=== PATIENT | female | born 1965 | race Caucasian/White ===

== ENCOUNTER 2019-08-20 07:47 | Day surgery (SDC) | payer OTHER ==
--- NOTE | 2019-08-15 09:32 | HP ---
Admitting History and Physical - Primary Care Physician PCP: Kartik Amaya - Admission Chief Complaint: Right breast cancer History of Present Illness: Patient is a 54 yo female noted to have a right central mass x 2 as well as a left retroareolar lesion on screening mammo and confirmed on diagnostic US. 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 The other two lesions were c/w a right 2 oclock cyst and left retroareolar fibroadenoma via core bxs. The right 12 oclock cancer is tagged with a heart clip. Patient is severely claustrophobic and therefore MRI was not done. Patient is presenting for a right breast WE with NL snbx and intraoperative radiation. History Source: Patient Limitations to Obtaining History: No Limitations - Past Medical History Reproductive: Yes: Fibroids Additional Past Medical History: Migraines - Past Surgical History Additional Past Surgical History: Myomectomy (2003) Home Medications - Allergies Allergies/Adverse Reactions: Allergies Allergy/AdvReac Type Severity Reaction Status Date / Time No Known Allergies Allergy Verified 08/15/19 09:36 - Home Medications Home Medications (free text): Maxalt Family Medical History Family Hx Cancer: Mother (breast cancer at 71) Other Family History: mat cousin-breast cancer 40s Review of Systems - Review of Systems Constitutional: reports: No Symptoms Cardiovascular: reports: No Symptoms Breasts: reports: See HPI Physical Examination Constitutional: Yes: Well Nourished, Calm Cardiovascular: Yes: WNL Respiratory: Yes: WNL Breast(s): Yes: Other (Breasts are symmetrical without suspicious palpable masses or axillary adenopathy noted bilaterally.) Problem List - Problems (1) Breast cancer, right Code(s): C50.911 - MALIGNANT NEOPLASM OF UNSP SITE OF RIGHT FEMALE BREAST Qualifiers: Breast location: overlapping sites of breast Estrogen receptor status: positive Patient sex: female Qualified Code(s): C50.811 - Malignant neoplasm of overlapping sites of right female breast; Z17.0 - Estrogen receptor positive status [ER+] Assessment/Plan Plan: Right breast WE with NL, snbx with lympho, poss ANDx and intraop radiation
[2019-08-15 12:13] VITALS: BMI 32.3
[2019-08-20] MEDS ORDERED: LIDOCAINE HCL 1%, 10 MG/ML (20ML VIAL) ONE (12:39)
[2019-08-20] MEDS ORDERED: BUPIVACAINE HCL/PF 2.5 MG/ML - 30 ML VIAL IJ ONE ×2 (12:39→15:34)
[2019-08-20] MEDS ORDERED: GUM MASTIC/STORAX/MSAL/ALCOHOL 1 DRP DROPSBTL MC ONE (12:40)
[2019-08-20] MEDS ORDERED: ePHEDrine SULFATE 50 MG/1 ML AMPULE ONE (13:03)
[2019-08-20] MEDS ORDERED: ONDANSETRON 4 MG/2 ML VIAL ONE ×3 (13:03→16:53)
[2019-08-20] MEDS ORDERED: MIDAZOLAM HCL 2 MG/2 ML SINGLE DOSE VIAL ONE (13:03)
[2019-08-20] MEDS ORDERED: PROPOFOL 20 ML ONE ×4 (13:03→15:49)
[2019-08-20] MEDS ORDERED: EPHEDRINE SULFATE/0.9% NACL/PF 50 MG/10 ML SYRINGE NR ONE (13:03)
[2019-08-20] MEDS ORDERED: DEXAMETHASONE SOD PHOSPHATE 4 MG/1 ML VIAL ONE ×2 (13:03→13:31)
[2019-08-20] MEDS ORDERED: SUCCINYLCHOLINE CHLORIDE 200 MG/10 ML SYRINGE ONE (13:03)
[2019-08-20] MEDS ORDERED: ISOSULFAN BLUE 10 MG/ML VIAL SQ ONE (13:09)
[2019-08-20] MEDS ORDERED: SODIUM CHLORIDE 0.9% P/F 10 ML VIAL IJ ONE (13:31)
[2019-08-20] MEDS ORDERED: KETOROLAC TROMETHAMINE 30 MG/1 ML VIAL ONE (13:31)
[2019-08-20] MEDS ORDERED: ceFAZolin SODIUM 1 GM VIAL ONE (13:31)
[2019-08-20] MEDS ORDERED: ONDANSETRON 4 MG/2 ML VIAL IVPUSH PRN ×2 (14:50→17:08)
[2019-08-20] MEDS ORDERED: KETOROLAC TROMETHAMINE 30 MG/1 ML VIAL IVPUSH PRN (14:50)
[2019-08-20] MEDS ORDERED: DEXTROSE 5%-0.45% SALINE 1,000 ML IV SCH (15:00)
--- NOTE | 2019-08-20 16:27 | OP ---
DATE OF OPERATION: 08/20/2019 PREOPERATIVE DIAGNOSIS: Right breast cancer. POSTOPERATIVE DIAGNOSIS: Right breast cancer. PROCEDURE PERFORMED: Right mammographically localized partial mastectomy with sentinel lymph node biopsy and intraoperative radiation. ANESTHESIA: General, intubated. SURGEON: Conner Amaya MD VP PLATFORMS: GOSIA Valle ESTIMATED BLOOD LOSS: Minimal. COMPLICATIONS: None. DESCRIPTION OF PROCEDURE: The patient was made aware of the risks and benefits of the procedure and consented. She was placed in the supine position after going to the radiology suite, where a needle was placed next to the indexed lesion, and Nuclear Medicine, where the right breast skin was injected with nuclear tracer. After general anesthesia was induced, the patient was intubated. The subareolar tissue was injected with 2 mL of 1% isosulfan blue. The operative site was then prepped and draped in the usual sterile fashion. The right axilla was approached first. A curvilinear incision was in the right axilla. Using blunt and sharp dissection, tissues were dissected down, revealing 3 blue and hot lymph nodes. These were surgically excised and submitted to Pathology. The wound was copiously irrigated with normal saline. Hemostasis was maintained with electrocautery. Interrogation of the axilla revealed no suspicious lymph nodes or hot spots. This wound was then closed with interrupted 3-0 Vicryl, followed by running subcuticular 4-0 Monocryl. The breast was then approached. A curvilinear incision was made from approximately 9 to 3 o'clock. Using electrocautery, thick skin flaps were made. The needle was withdrawn through the puncture site and a wire . Tissues around the wire were then sharply excised and submitted with a short suture superior and long suture lateral. Specimen radiograph confirmed the presence of the indexed lesion. Additional segments were taken medial, lateral, deep, anterior, superior and inferior, with clips at the new margin. The wound was copiously irrigated with normal saline and hemostasis maintained by electrocautery. A 4.5-cm probe was then placed into the cavity and the tissue was apposed to it with a purse-string suture of number 1 Vicryl. The skin was protected with saline-soaked gauze, and intraoperative ultrasound revealed the distances from the skin to the probe were greater than 1.5 cm. Radiopaque material was placed over the chest wall and she underwent approximately 35 minutes of intraoperative radiation. The probe, gauze and suture were then removed. The wound was copiously irrigated with normal saline. The wound was then closed with deep 2-0 Vicryl, followed by deep dermal 3-0 Vicryl, followed by running subcuticular 4-0 Monocryl. Steri-Strips, sterile dressing and a compression bra were then applied. The patient, having tolerated the procedure, was transferred to the recovery room in excellent condition. CONNER AMAYA M.D. [id number]
[2019-08-20 16:41] VITALS: TEMP 97.8
[2019-08-20] MEDS ORDERED: LACTATED RINGERS SOLUTION 1,000 ML IV SCH (17:15)
[2019-08-20] MEDS ORDERED: PROMETHAZINE HCL 25 MG/1 ML VIAL ONE (17:26)
[2019-08-20 19:35] VITALS: BP 122/66; PULSE 94
--- NOTE | 2019-08-20 23:25 | OP ---
DATE OF OPERATION: 08/20/2019 PREOPERATIVE DIAGNOSIS: Right breast cancer. POSTOPERATIVE DIAGNOSIS: Right breast cancer. PROCEDURE: Post lumpectomy intraoperative radiation therapy for right breast cancer. ATTENDING SURGEON: Kartik Amaya MD AUTO BUMPER MECHANIC/RADIATION ONCOLOGIST: Maile Lawton MD ANESTHESIA: General. COMPLICATIONS: None. INDICATIONS: Patient is a 54-year-old woman with a clinical stage IA invasive ductal carcinoma of the right breast elected breast conversation therapy with intraoperative radiation therapy on the TARGIT-US protocol. DESCRIPTION OF PROCEDURE: Dr. Amaya performed right lumpectomy and sentinel lymph node biopsy, which he has dictated. After excision of additional margins, the lumpectomy cavity was prepared and sized with a 4.5 spherical applicator, which was placed into the lumpectomy cavity at the 11 o'clock aspect of the right breast. The surrounding breast tissues were cinched around the applicator with the Vicryl pursestring suture. A clinical and ultrasound simulation was performed to ensure that the applicator was located within the operative bed with close apposition of the surrounding breast tissue to the surface of the applicator. Ultrasound measurements showed a minimum distance of 2.8 cm from the applicator to skin surface at the 6 o'clock aspect of the applicator. Saline-soaked gauze was placed between the skin and breast tissue. The applicator was positioned away from the chest wall to minimize further deep exposure. Shielding material was placed over the breast to reduce scatter radiation. The patient received a total dose of 20Gy prescribed to 0-mm from the applicator surface using 50 kV x-rays with the Intrabeam system. Prior to treatment, the system was double checked with appropriate physics quality control clerk measures. The total time required for the treatment was 36 minutes 14 seconds at a dose rate of 0.556 Gy per minute. When the treatment was completed , survey of the patient and room confirmed that the Intrabeam source was off. There were no complications. Dr. Amaya's team removed the radiation applicator from the patient and completed the surgery. DISPOSITION: The patient will be transferred to the recovery room following the surgery. MAILE LAWTON M.D. [id number] cc: Kartik Amaya MD [facility]
--- NOTE | 2019-08-26 11:13 | PATH ---
Surgical Pathology Report Patient Name: PRAVEEN STATON [facility]. Rec. #: [id number] /Age/Gender: 1965 (Age: 54) / F Account: [id number] Location: [facility] AMBULATORY Taken: 08/20/2019 Received: 08/20/2019 Reported: 08/26/2019 Physicians: Kartik Amaya M.D. Specimen(s) Received A: RIGHT AXILLARY SENTINEL NODES B: RIGHT BREAST WIDE EXCISION C: RIGHT BREAST SUPERIOR MARGIN D: RIGHT BREAST MEDIAL MARGIN E: RIGHT BREAST ANTERIOR MARGIN F: RIGHT BREAST INFERIOR MARGIN G: RIGHT BREAST LATERAL MARGIN H: RIGHT BREAST POSTERIOR MARGIN Clinical History Invasive carcinoma Final Diagnosis A. AXILLARY SENTINEL NODES, RIGHT, EXCISION: THREE LYMPH NODES NEGATIVE FOR CARCINOMA ON H&E AND CYTOKERATIN AE1/3 IMMUNOHISTOCHEMICAL STAIN (0/3). B. BREAST, RIGHT, WIDE EXCISION: INVASIVE DUCTAL CARCINOMA, POORLY DIFFERENTIATED (TUBULE SCORE: 3/3, NUCLEAR GRADE: 3/3, MITOTIC SCORE: 2/3; TOTAL VALENCIA SCORE: 8/9). INVASIVE CARCINOMA MEASURES 1.3 CM IN GREATEST MICROSCOPIC DIMENSION. NO DUCTAL CARCINOMA IN SITU (DCIS) IDENTIFIED. LOBULAR CARCINOMA IN SITU (LCIS) CLASSICAL TYPE. NO LYMPHOVASCULAR INVASION IDENTIFIED. SURGICAL MARGINS ARE UNINVOLVED BY CARCINOMA; CARCINOMA IS 2 MM FROM CLOSEST POSTERIOR MARGIN. SEE SPECIMEN C-H FOR FINAL MARGINS. PRIOR BIOPSY SITE CHANGES ARE PRESENT. REMAINDER OF BREAST PARENCHYMA SHOWS A FIBROADENOMA IN A BACKGROUND OF FIBROCYSTIC CHANGES INCLUDING STROMAL FIBROSIS, MICROCYSTS, USUAL DUCTAL HYPERPLASIA, AND COLUMNAR CELL CHANGES. SEE CASE SUMMARY BELOW. SEE COMMENT. C. BREAST, RIGHT, SUPERIOR MARGIN, EXCISION: BENIGN BREAST PARENCHYMA. D. BREAST, RIGHT, MEDIAL MARGIN, EXCISION: INVASIVE LOBULAR CARCINOMA, MODERATELY DIFFERENTIATED (TUBULE SCORE: 3/3, NUCLEAR GRADE: 2/3, MITOTIC SCORE: 1/3; TOTAL VALENCIA SCORE: 6/9), CLASSICAL TYPE. INVASIVE CARCINOMA MEASURES 2 MM IN GREATEST MICROSCOPIC DIMENSION. NO DUCTAL CARCINOMA IN SITU (DCIS) IDENTIFIED. LOBULAR CARCINOMA IN SITU (LCIS) CLASSICAL TYPE. NO LYMPHOVASCULAR INVASION IDENTIFIED. SURGICAL MARGINS ARE UNINVOLVED BY CARCINOMA; CARCINOMA IS 6 MM FROM NEW MEDIAL MARGIN. SEE CASE SUMMARY BELOW. SEE COMMENT. E. BREAST, RIGHT, ANTERIOR MARGIN, EXCISION: BENIGN BREAST PARENCHYMA. F. BREAST, RIGHT, INFERIOR MARGIN, EXCISION: LOBULAR CARCINOMA IN SITU (LCIS) CLASSICAL TYPE. G. BREAST, RIGHT, LATERAL MARGIN, EXCISION: LOBULAR CARCINOMA IN SITU (LCIS) CLASSICAL TYPE. H. BREAST, RIGHT, POSTERIOR MARGIN, EXCISION: LOBULAR CARCINOMA IN SITU (LCIS) CLASSICAL TYPE. SEE COMMENT. PATHOLOGIC STAGE (pTNM, 8TH EDITION): pT1c(m) pN0(sn). Comment: There are two (2) foci of invasive carcinoma; an invasive ductal carcinoma present in the wide excision and an invasive lobular carcinoma present in the separately submitted new medial margin. Immunohistochemical stains performed and interpreted at [facility] show E-Cadherin is positive in the area of invasive ductal carcinoma; while negative in the invasive lobular carcinoma (D1) and LCIS (B8,H2). Myoepithelial markers (P63 and SMM-HC) are negative in area of invasive carcinoma (D1). Positive and negative controls (internal if applicable) show appropriate results. Comments Breast Invasive Carcinoma: Surgical Pathology Case Summary (Based on AJCC TNM 8 th edition) Procedure _X_ Excision (less than total mastectomy) Specimen Laterality _X_ Right Tumor Size _X_ Greatest dimension of largest invasive focus >1 mm (millimeters): 13 mm Histologic Type _X_ Invasive carcinoma of no special type (ductal, not otherwise specified) part B _X_ Invasive lobular carcinoma- part D Histologic Grade ([place] Histologic Score) Part B- Invasive ductal carcinoma (1 Focus) Glandular (Acinar)/Tubular Differentiation _X_ Score 3 (<10% of tumor area forming glandular/tubular structures) Nuclear Pleomorphism _X_ Score 3 Mitotic Rate _X_ Score 2 Overall Grade _X_ Grade 3 (scores of 8) Part D- Invasive lobular carcinoma (1 focus) Glandular (Acinar)/Tubular Differentiation _X_ Score 3 (<10% of tumor area forming glandular/tubular structures) Nuclear Pleomorphism _X_ Score 2 Mitotic Rate _X_ Score 1 Overall Grade _X__ Grade 2 (scores of 6) Tumor Focality _X_ Multiple foci of invasive carcinoma Number of foci: 2 Sizes of individual foci: 1.3 cm and 2 mm Ductal Carcinoma In Situ (DCIS) _X_ No DCIS in specimen Margins Invasive Carcinoma Margins _X__ Uninvolved by invasive carcinoma Distance from closest margin (millimeters): 2 mm from posterior margin in wide excision (B); negative in final posterior margin (H) (invasive ductal carcinoma) 6 mm from new medial margin (D) (invasive lobular carcinoma) Closest margin: medial DCIS Margins _X_ No DCIS in specimen Regional Lymph Nodes _X_ Uninvolved by tumor cells Number of Lymph Nodes Examined: 3 Number of [place] Nodes Examined: 3 Treatment Effect _X_ No known presurgical therapy Lymphovascular Invasion _X_ Not identified Pathologic Stage Classification (pTNM, AJCC 8th Edition) _X_ pT(m): multiple foci of invasive carcinoma Primary Tumor (Invasive Carcinoma) (pT) _X_ pT1c: Tumor >10 mm but =20 mm in greatest dimension Regional Lymph Nodes (pN) Category (pN) _X_ pN0: No regional lymph node metastasis identified or ITCs only Biomarker Studies Part B- Invasive ductal carcinoma Results of ER and AK studies performed on this specimen (block# B2) at [facility] are as follows: ER (clone [id number] mouse monoclonal antibody by [employer]): ~80% nuclear staining with moderate to strong intensity (Positive). AK (clone16 mouse monoclonal antibody by [employer]): ~80% nuclear staining with strong intensity (Positive). Part D- Invasive lobular carcinoma Results of ER and AK studies performed on this specimen (block# D1) at [facility] are as follows: ER (clone [id number] mouse monoclonal antibody by [employer]): ~90% nuclear staining with moderate to strong intensity (Positive). AK (clone16 mouse monoclonal antibody by [employer]): ~70% nuclear staining with strong intensity (Positive). Results of Her2 and Ki67 studies will be reported separately in an addendum. Positive and negative controls (internal if applicable) show appropriate results. Formalin fixation and cold ischemic times are within current ASCO/CAP recommendations for ER, AK and Her2 testing. Electronically Signed Yaneli Hurt M.D. Addendum Reported: 08/28/2019 Addendum Diagnosis Results of Her2 (IHC) & Ki-67 studies performed on block "B2" at [place], [place] ([id number]) are as follows: Her2 IHC (EP3 from [employer], formerly known as [id number], using [employer] Polymer Refine detection kit): 1+ (Negative). Ki-67: ~20% (Intermediate proliferative index). Results of Her2 (IHC) & Ki-67 studies performed on block "D1" at [place], [place] ([id number]) are as follows: Her2 IHC (EP3 from [employer], formerly known as [id number], using [employer] Polymer Refine detection kit): 1+ (Negative). Ki-67: ~3% (Low proliferative index). Positive and negative controls (internal if applicable) show appropriate results. Yaneli Hurt M.D. Gross Description A. Received in formalin labeled "right axillary sentinel nodes" are 3 forrest lymph nodes ranging from 0.9 x 0.6 x 0.3 cm to 1.6 x 1.4 x 0.6 cm. The largest lymph node is bisected and the specimen is entirely submitted in 3 cassettes as follows: 1-one whole lymph node; 2-one whole lymph node; 3-one bisected lymph node. B. Received in formalin, labeled "right breast wide excision," is a 4.7 x 3.5 x 2.5 cm. forrest-yellow, irregular, portion of fibroadipose tissue with a needle localization wire present. There is a short suture marking the superior aspect and a long suture marking the lateral aspect, per the surgeon. There is no skin or nipple present. The specimen is inked as follows: superior and lateral blue; inferior green; medial yellow; anterior red; posterior black. The specimen is serially sectioned from lateral to medial. Sectioning reveals a 1.0 x 0.8 x 0.6 cm forrest, indurated mass at 0.4 cm from the posterior margin, 0.4 cm from the superior margin and 0.4 cm from the lateral margin. There is an additional 0.7 x 0.5 x 0.5 cm forrest fibrous lesion which is 1.0 cm medial to the mass. The second lesion is 0.3 cm from the anterior margin. Floor Press Operator sections are submitted in 8 cassettes as follows: 1-3-one full face section of mass each (each with superior, anterior and posterior margins); 4-lateral margin; 5-6-second lesion (each with superior, anterior and posterior margins); 7-inferior margin; 8-medial margin. Total formalin fixation time: Approximately 48 hours C. Received in formalin labeled "right breast superior margin," is a 2.2 x 1.6 x 0.8 cm portion of fibroadipose tissue with a clip marking the new margin, per the surgeon. The new margin is inked black and the specimen is serially sectioned. The specimen is entirely submitted in 3 cassettes. D. Received in formalin labeled "right breast medial margin," is a 3.4 x 3.1 x 0.9 cm portion of fibroadipose tissue with a clip marking the new margin, per the surgeon. The new margin is inked black and the specimen is serially sectioned. The specimen is entirely and sequentially submitted in 5 cassettes. E. Received in formalin labeled "right breast anterior margin," is a 2.5 x 2.3 x 0.5 cm portion of fibroadipose tissue with a clip marking the new margin, per the surgeon. The new margin is inked black and the specimen is serially sectioned. The specimen is entirely submitted in 3 cassettes. F. Received in formalin labeled "right breast inferior margin," is a 1.8 x 1.3 x 0.7 cm portion of fibroadipose tissue with a clip marking the new margin, per the surgeon. The new margin is inked black and the specimen is serially sectioned. The specimen is entirely submitted in 3 cassettes. G. Received in formalin labeled "right breast lateral margin," is a 4.0 x 2.5 x 0.7 cm portion of fibroadipose tissue with a clip marking the new margin, per the surgeon. The new margin is inked black and the specimen is serially sectioned. The specimen is entirely and sequentially submitted in 5 cassettes. H. Received in formalin labeled "right breast posterior margin," is a 2.3 x 2.3 x 1.0 cm portion of fibroadipose tissue with a clip marking the new margin, per the surgeon. The new margin is inked black and the specimen is serially sectioned. The specimen is entirely submitted in 3 cassettes. DL08/22/2019 saudi08/22/2019
== END 2019-08-20 19:30 | disposition home or self-care (01) ==
LOC: FASU 07:47
PROVIDERS: ATTEND Surgery Surgical Oncology
PROC: 0HBT0ZZ Excision of Right Breast, Open Approach (ICD-10-PCS; principal; 2019-08-20 13:53)
PROC: DMY17ZZ Contact Radiation of Right Breast (ICD-10-PCS; 2019-08-20 13:53)
DX: C50.811 Malignant neoplasm of overlapping sites of right female breast (principal); Z17.0 Estrogen receptor positive status [ER+]; Z80.3 Family history of malignant neoplasm of breast
CPT/HCPCS: 19281; 76098-TC-FY; 76641-TC-50; 77290; 77300; 77316; 77332; 77424; 78195-TC; 84703; 88307-TC; 88341-TC; 88342-TC; 94760; A9541; C9726